=== PATIENT | female | born 1990 | race Caucasian/White ===

== ENCOUNTER 2022-10-22 15:56 | Inpatient (IN) ==
[2022-10-22] MEDS ORDERED: OXYTOCIN 30 UNITS/500 ML BAG IV PRN ×2 (16:13→21:25)
[2022-10-22] MEDS ORDERED: LIDOCAINE 1% LOCAL 20 ML VIAL INFIL PRN (16:13)
[2022-10-22] MEDS ORDERED: LACTATED RINGER'S 1,000 ML IV PRN (16:13)
[2022-10-22] MEDS ORDERED: fentaNYL citrate PF 100 MCG/2 ML VIAL ONE (16:22)
[2022-10-22] MEDS ORDERED: ePHEDrine sulfate 50 MG/ML AMP ONE (16:22)
[2022-10-22] MEDS ORDERED: SODIUM CHLORIDE 0.9% PF INJ 10 ML VIAL ONE (16:22)
[2022-10-22] MEDS ORDERED: BUPIVACAINE 0.25% PF 30 ML VIAL ONE (16:22)
[2022-10-22] MEDS ORDERED: fentaNYL 2MCG/ML ROPIVACAINE 1.25MG/ML 100 ML BAG EPI ONE (16:23)
[2022-10-22] MEDS ORDERED: LIDOCAINE 2%/EPINEPHRINE 1:200,000 20 ML PF ONE (16:23)
[2022-10-22] MEDS ORDERED: PENICILLIN G POTASSIUM 6 MU in DEXTROSE 5% 250 ML IV ONE (16:30)
--- NOTE | 2022-10-22 16:41 | History & Physical Report ---
Date of Service October 22, 2022 Assessment & Plan (1) Normal labor: (2) Carrier of group B Streptococcus: Plan admit, iv, labs. pcn for gbs. considering epidural. Admission and Anticipated Discharge Date Admission Date: October 22, 2022 History of Present Illness Chief Complaint: labor Primary Care Provider: Glneda Nevarez MD 32yo at 40+wks ega presents to L&D with labor. Contractions began this morning but then became more regular and patient prese nted for cx check after calling. No rom, no vb. +FM. Cx check per nurse 6cm. PNC significant for circumvallate placenta vs MCI, gbs + PNL rhpos, ri, gbs pos OBH: x 2 GYNH: nl paps no stds Allergies Allergy/AdvReac Type Severity Reaction Status Date / Time No Known Allergies Allergy Verified 10/16/22 14:53 Home Medications Medication Instructions Recorded Confirmed Type prenat.vits,oscar,azm-dowr-[id number] 1 tab PO DAILY 03/06/22 10/22/22 History breast pump #1 ea 08/29/22 10/16/22 Rx ferrous sulfate 325 mg (65 mg 325 mg PO DAILY 10/22/22 10/22/22 History iron) tablet (Iron (ferrous sulfate)) Patient History Medical History (Updated 10/22/22 @ 16:46 by Kala Nevarez MD, FACOG) Abnormal uterine bleeding (AUB) Abnormal uterine bleeding (AUB) Endometrial polyp History of chicken pox History of COVID-18 Jun 2021, home test > mild cold symptoms > re-test at home approx 1 week ago was negative Migraine Surgical History History of colonoscopy History of colposcopy 06/2019, ? pap disparate info. History of esophagogastroduodenoscopy (EGD) Hx of cholecystectomy Hx of surgical procedure liposuction to abdomen S/P dilatation and curettage Status post hysteroscopic polypectomy [place] teeth extracted Family History Aunt Breast cancer, Onset Age: 42 Grandfather (Maternal) Colorectal cancer, Onset Age: 62 Grandmother (Maternal) No problems noted. Grandmother (Paternal) Ovarian cancer, Onset Age: 70 Aunt Breast cancer, Onset Age: 50 Social History (Updated 03/06/22 @ 10:02 by Amada Darden) Smoking Status: Never smoker Second Hand Exposure: No; Do You Dip or Chew Tobacco: No; Hx Alcohol Use: No Hx Substance Use: No Preferred Language: Lithuanian Communication Ability: Effective Visual Impairment: No Limitations [employer] Senior Manager Required: No Beliefs That Will Affect Care: None marital status: marital status details: Ion Flores (38) [phone] Current Living Situation: Family Current Living Situation Comment: and 2 children current occupational status: employed current occupation: [employer] Other Information That Helps Us Care for You: No Feels Safe at Home: Yes Safety Concerns: Feels Safe At This Time Assistive Devices: None Review of Systems as per Subjective / HPI Physical Exam Constitutional: WD/WN, vitals as above Respiratory: normal respiratory effort, lungs clear to auscultation Cardiovascular: Rate/Rhythm: regular rate and regular rhythm Gastrointestinal (Abdomen): soft gravid nt efw 7-8# Musculoskeletal: no edema nontender calves Neurologic: grossly normal Psychiatric: A+Ox3, euthymic affect Genitourinary: Manual OB Exam: + cervical dilation (per nurse) 6 cm OB Exam Monitor Tracing: + external FHT monitor used, + external uterine monitor used (q2-3), + category I and + normal FHT variability Results & Data Vital Signs (Past 12 Hours) Vital Signs Temp Pulse Resp BP Pulse Ox 10/22/22 16:38 71 98 10/22/22 16:33 86 98 10/22/22 16:28 79 98 10/22/22 16:10 86 138/86 10/22/22 16:21 98.6 F 86 20 138/86 Code Status & VTE Plan VTE Prophylaxis Plan VTE Prophylaxis will be ordered: Yes Coding Level of Care Code None Diagnoses Normal labor O80; Z37.9 Carrier of group B Streptococcus Z22.330
[2022-10-22 16:42] LABS: Hemoglobin 11.1 g/dl (12.0-16.0); Mean Corpuscular Hemoglobin 27.1 pg (25.0-34.0); Mean Corpuscular Hgb Conc 32.6 g/dL (32.0-36.0); Mean Corpuscular Volume 82.9 fL (80.0-100.0); Mean Platelet Volume 11.1 fL (9.4-12.4); Platelet Count 213 K/uL (130-400); RDW Coefficient of Variation 13.6 % (11.5-14.5); RDW Standard Deviation 40.6 fL (36.4-46.3)
--- NOTE | 2022-10-22 16:50 | Anesthesiology Consultation ---
Date of Service October 22, 2022 Assessment & Plan Chart Review Chart Review: Acceptable Risk for Surgery, Patient NOT seen in Pre Admission Testing and Acceptable Risk for Labor Epidural Consults Requested none ASA ASA2 Proposed Anesthesia Anesthesia Type: Labor Epidural and CSE History Height/Weight Height: 5 ft 5 in Weight: 85.275 kg Allergies Allergy/AdvReac Type Severity Reaction Status Date / Time No Known Allergies Allergy Verified 10/16/22 14:53 Medications Home Medications Medication Instructions Recorded Confirmed Last Taken prenat.vits,oscar,ums-gppp-jlwtk 1 tab PO DAILY 03/06/22 10/22/22 10/22/22 breast pump #1 ea 08/29/22 10/16/22 Unknown ferrous sulfate 325 mg (65 mg 325 mg PO DAILY 10/22/22 10/22/22 10/22/22 iron) tablet (Iron (ferrous sulfate)) Past Medical History Medical History Abnormal uterine bleeding (AUB) Abnormal uterine bleeding (AUB) Endometrial polyp History of chicken pox History of COVID-18 Jun 2021, home test > mild cold symptoms > re-test at home approx 1 week ago was negative Migraine Exercise / Class Metabolic Activity II 4-5 Yardwork/Stairs/Walk up hill Past Family History Family History Aunt Breast cancer, Onset Age: 42 maternal Grandfather (Maternal) Colorectal cancer, Onset Age: 62 Grandmother (Maternal) No problems noted. Grandmother (Paternal) Ovarian cancer, Onset Age: 70 Aunt Breast cancer, Onset Age: 50 maternal , recurred age 60 Past Surgical History Surgical History History of colonoscopy History of colposcopy 06/2019, ? pap disparate info. History of esophagogastroduodenoscopy (EGD) Hx of cholecystectomy Hx of surgical procedure liposuction to abdomen S/P dilatation and curettage Status post hysteroscopic polypectomy [place] teeth extracted Past Anesthesia History No Hx of Anesthesia Complications and No Family Hx of Anesthesia Complications History of PONV No Hx of PONV and No Hx of Motion Sickness Social History Smoking Status: Never smoker Do You Dip or Chew Tobacco: No Hx Alcohol Use: No Hx Substance Use: No substance use type: does not use Physical Exam Vital Signs Last Vital Signs Temp 37.0 C 10/22/22 16:21 Pulse 79 10/22/22 16:43 Resp 20 10/22/22 16:21 BP 140/76 10/22/22 16:42 Pulse Ox 98 10/22/22 16:43 Testing Laboratory Results 10/22/22 16:25
[2022-10-22] MEDS ORDERED: NALOXONE HCL 0.4 MG/1 ML VIAL/CARP IV PRN (17:20)
[2022-10-22] MEDS ORDERED: ROPIVACAINE 0.5% PF 5 MG/ML 20 ML VIAL EPI PRN (17:20)
[2022-10-22] MEDS ORDERED: BUPIVACAINE 0.25% PF 30 ML VIAL EPI STA (17:20)
[2022-10-22] MEDS ORDERED: diphenhydrAMINE 50 MG/ML VIAL IV PRN (17:20)
[2022-10-22] MEDS ORDERED: LIDOCAINE 2% MPF LOCAL 5 ML VIAL EPI PRN (17:20)
[2022-10-22] MEDS ORDERED: ONDANSETRON INJ 2 MG/ML 2 ML VIAL IV PRN (17:20)
[2022-10-22] MEDS ORDERED: SODIUM CHLORIDE 0.9% PF INJ 10 ML VIAL EPI STA (17:20)
[2022-10-22] MEDS ORDERED: fentaNYL citrate PF 100 MCG/2 ML VIAL EPI PRN (17:20)
[2022-10-22] MEDS ORDERED: fentaNYL citrate PF 100 MCG/2 ML VIAL EPI STA (17:20)
[2022-10-22] MEDS ORDERED: PROMETHAZINE HCL 25 MG in SODIUM CHLORIDE 0.9% 50 ML IV PRN (17:20)
[2022-10-22] MEDS ORDERED: BUPIVACAINE 0.25% PF 30 ML VIAL EPI PRN (17:20)
[2022-10-22] MEDS ORDERED: fentaNYL 2MCG/ML ROPIVACAINE 1.25MG/ML 100 ML BAG EPI PRN (17:20)
[2022-10-22] MEDS ORDERED: LIDOCAINE 2%/EPINEPHRINE 1:200,000 20 ML PF EPI STA (17:20)
[2022-10-22] MEDS ORDERED: ePHEDrine sulfate 50 MG/ML AMP IV PRN (17:20)
[2022-10-22] MEDS ORDERED: NALOXONE HCL 1 MG in SODIUM CHLORIDE 0.9% 1000ML 1,000 ML IV PRN (17:20)
[2022-10-22] MEDS ORDERED: SODIUM CHLORIDE 0.9% PF INJ 10 ML VIAL EPI PRN (17:20)
[2022-10-22] MEDS ORDERED: NALBUPHINE HCL INJ 10 MG/ML AMP IV PRN (17:20)
--- NOTE | 2022-10-22 19:34 | Labor Progress Brief Note ---
Date of Service October 22, 2022 Subjective comfortable with epidural. noted clear fluid srom. Assessment & Plan (1) Normal labor: (2) Carrier of group B Streptococcus: Plan good cx change. anticip soon. c/w pcn for gbs status. fhts categ 1. Admission and Anticipated Discharge Date Admission Date: October 22, 2022 Physical Exam Constitutional: WD/WN, vitals as above Genitourinary: Manual OB Exam: + cervical dilation 9 cm, + cervical effacement 90% and + station + 1 OB Exam Monitor Tracing: + external FHT monitor used, + external uterine monitor used (q2-3), + category I and + normal FHT variability Results & Data Vital Signs (Past 12 Hours) Vital Signs Temp Pulse Resp BP Pulse Ox 10/22/22 19:30 61 99 10/22/22 19:25 82 98 10/22/22 19:23 85 131/83 10/22/22 19:20 66 98 10/22/22 19:15 68 99 10/22/22 19:10 99 10/22/22 19:10 70 10/22/22 19:10 70 129/80 10/22/22 19:05 69 99 10/22/22 19:00 80 97 10/22/22 18:55 65 99 10/22/22 18:52 54 L 122/81 10/22/22 18:50 63 100 10/22/22 18:48 55 L 119/80 10/22/22 18:45 72 98 10/22/22 18:43 63 134/76 10/22/22 18:40 64 99 10/22/22 18:38 75 128/77 10/22/22 18:35 77 95 10/22/22 18:36 77 91 10/22/22 18:30 65 98 10/22/22 18:28 56 L 107/56 L 10/22/22 18:25 53 L 98 10/22/22 18:22 60 105/55 L 10/22/22 18:20 58 L 98 10/22/22 18:19 55 L 110/57 L 10/22/22 18:15 54 L 97 10/22/22 18:14 57 L 111/53 L 10/22/22 18:10 57 L 98 10/22/22 18:09 74 101/55 L 10/22/22 18:05 58 L 97 10/22/22 18:03 59 L 102/55 L 10/22/22 18:00 61 98 10/22/22 17:58 62 109/57 L 10/22/22 17:55 61 106/56 L 98 10/22/22 17:50 63 98 10/22/22 17:47 61 113/52 L 10/22/22 17:45 69 98 10/22/22 17:43 65 122/56 L 10/22/22 17:40 81 98 10/22/22 17:37 68 116/57 L 10/22/22 17:35 65 97 10/22/22 17:34 68 102/52 L 10/22/22 17:31 75 117/55 L 10/22/22 17:30 68 97 10/22/22 17:29 68 118/58 L 10/22/22 17:28 75 121/57 L 10/22/22 17:25 87 109/63 98 10/22/22 17:23 76 111/57 L 10/22/22 17:21 72 110/54 L 10/22/22 17:20 83 113/65 97 10/22/22 17:15 91 H 98 10/22/22 17:13 71 141/75 H 10/22/22 17:11 64 146/88 H 10/22/22 17:10 99 10/22/22 17:10 60 10/22/22 17:10 73 143/88 H 10/22/22 17:08 84 153/97 H 10/22/22 17:05 78 99 10/22/22 16:53 68 97 10/22/22 16:48 79 99 10/22/22 16:43 79 98 10/22/22 16:42 70 140/76 10/22/22 16:38 71 98 10/22/22 16:33 86 98 10/22/22 16:28 79 98 10/22/22 16:10 86 138/86 10/22/22 16:21 98.6 F 86 20 138/86 Coding Level of Care Code None Diagnoses Normal labor O80; Z37.9 Carrier of group B Streptococcus Z22.330
[2022-10-22] MEDS ORDERED: PENICILLIN G POTASSIUM 3 MU in DEXTROSE 5% 100 ML IV PRN (19:41)
--- NOTE | 2022-10-22 20:34 | Delivery Summary ---
Vaginal Delivery Summary Date of Service October 22, 2022 Vaginal Delivery Summary and 2nd Degree LAC The patient dilated to complete and pushed to deliver a viable female infant Apgars 8 and 9 via over small 2nd degree perineal laceration. Mouth and nose bulb suctioned at perineum. Shoulders and body delivered with ease. Infant was vigorous and crying at . Cord clamped at 30 seconds of life and infant to maternal abdomen where the cord was then doubly clamped and cut. Placenta delivered spontaneously and intact, three-vessel cord--marginal cord insertion noted. Hemostasis achieved with dilute pitocin and uterine massage and drainage of the bladder for approximately 300 cc under sterile conditions. Laceration repaired in typical fashion with 3-0 vicryl. Cervix and sulci intact. EBL 300 cc. Mother and baby stable in recovery. [facility] [place] Delivery Type Details: and 2nd Degree LAC
--- NOTE | 2022-10-22 21:07 | Anesthesia Procedure Note ---
Date of Service October 22, 2022 Anesthesia Post Epidural Note Vital Signs Vital Signs: Temp Pulse Resp BP Pulse Ox 36.8 C 148 H 18 119/74 99 10/22/22 19:10 10/22/22 20:54 10/22/22 19:10 10/22/22 20:54 10/22/22 20:30 Pain Intensity Lower Medial Abdomen: Pain Intensity: 0 Notes Mental Status: alert / awake / arousable and participated in evaluation Nausea / Vomiting: adequately controlled Pain: adequately controlled Airway Patency, RR, SpO2: stable & adequate BP & HR: stable & adequate Hydration State: stable & adequate Neuraxial Anesthesia: was administered and sensory block is resolving Anesthetic Complications: no major complications apparent and Pt Satisfied with anesthetic care Epidural: Removed without complications and With tip intact
[2022-10-22] MEDS ORDERED: ACETAMINOPHEN 325 MG TAB PO PRN (21:25)
[2022-10-22] MEDS ORDERED: OXYTOCIN 20 UNITS in LACTATED RINGER'S 1,000 ML IV SCH (21:25)
[2022-10-22] MEDS ORDERED: HYDROCORTISONE ACETATE 25 MG SUPP PR PRN (21:25)
[2022-10-22] MEDS ORDERED: oxyCODONE/ACETAMINOPHEN 5mg/325mg TAB PO PRN (21:25)
[2022-10-22] MEDS ORDERED: BENZOCAINE 20% AER SPR 82.5 GM CAN EXT PRN (21:25)
[2022-10-22] MEDS ORDERED: bisacodyL 10 MG SUPP PR PRN (21:25)
[2022-10-22] MEDS: DOCUSATE SODIUM 100 MG CAP PO SCH (23:17)
[2022-10-23] MEDS: IBUPROFEN 600 MG TAB PO PRN ×3 (02:11→17:39)
--- NOTE | 2022-10-23 06:53 | Obstetrical Progress Note ---
Date of Service <Joaquin Antonio DO - Last Filed: 10/23/22 06:55> October 23, 2022 Assessment & Plan <Joaquin Antonio DO - Last Filed: 10/23/22 06:55> (1) Normal labor: (2) Encounter for care and examination after delivery: Plan - Feels well today. Eating well, voiding well, ambulating well. - Pain well controlled with ibuprofen 600mg Q4H PRN - Routine care -- OOB, ambulation, diet progression as tolerated - After discharge will have 6 week follow-up with Dr. Nevarez. - Will D/C after 24 hours post delivery. Day #:: 1 <Kala Nevarez MD, FACOG - Last Filed: 10/23/22 06:57> (1) Normal labor: (2) Encounter for care and examination after delivery: Subjective <Joaquin Antonio DO - Last Filed: 10/23/22 06:55> Ambulation: ambulating normally Voiding: no voiding problems Passing Gas:: Yes Diet Tolerance:: regular diet Lochia:: Small Feeding Type:: breast feeding Current Pain Level(1-10): 2 Review of Systems Denies fever, chills, sweats Denies shortness of breath, difficulty breathing, chest pain, palpitations, chest pressure. Denies breast pain. Denies dysuria. Denies headache or changes in vision. Physical Exam <Joaquin Antonio DO - Last Filed: 10/23/22 06:55> General: Alert, oriented. No acute distress. Cardiac: Regular rate and rhythm, no murmurs/rubs/gallops. Respiratory: Clear to auscultation bilaterally a/p, no wheezes/rales/rhonchi. No increased work of breathing. Symmetrical chest rise. No respiratory distress. Abdomen: Soft, nontender, nondistended. Bowel sounds present. Uterus: Uterine fundus firm, palpable 1 cm below umbilicus. Lower Extremities: No lower extremity edema or swelling. No deep calf pain. Davin's negative bilaterally. Results & Data <Joaquin Antonio DO - Last Filed: 10/23/22 06:55> Vital Signs (Past 12 Hours) Vital Signs Temp Pulse Pulse Resp BP BP Pulse Ox 10/23/22 04:10 36.5 C 61 16 125/77 98 10/22/22 22:50 36.5 C 76 17 147/74 H 98 10/22/22 22:39 67 126/60 10/22/22 22:24 72 140/75 10/22/22 21:38 58 L 126/80 10/22/22 21:23 52 L 121/72 10/22/22 21:08 58 L 125/75 10/22/22 19:10 18 10/22/22 19:10 36.8 C 18 10/22/22 20:54 148 H 119/74 10/22/22 20:39 56 L 133/102 H 10/22/22 20:33 58 L 137/98 10/22/22 20:30 76 99 10/22/22 20:25 59 L 99 10/22/22 20:20 70 99 10/22/22 20:15 93 H 98 10/22/22 20:11 82 111/83 10/22/22 20:10 60 100 10/22/22 20:05 55 L 99 10/22/22 20:00 61 99 10/22/22 19:55 68 123/62 98 10/22/22 19:50 99 10/22/22 19:50 74 10/22/22 19:50 69 93 10/22/22 19:45 56 L 98 10/22/22 19:40 99 10/22/22 19:40 57 L 10/22/22 19:40 63 136/60 10/22/22 19:35 54 L 98 10/22/22 19:30 61 99 10/22/22 19:25 82 98 10/22/22 19:23 85 131/83 10/22/22 19:20 66 98 10/22/22 19:15 68 99 10/22/22 19:10 99 10/22/22 19:10 70 10/22/22 19:10 70 129/80 10/22/22 19:05 69 99 10/22/22 19:00 80 97 10/22/22 18:55 65 99 O2 Del Method 10/23/22 04:10 Room Air 10/22/22 22:50 Room Air 10/22/22 22:39 10/22/22 22:24 10/22/22 21:38 10/22/22 21:23 10/22/22 21:08 10/22/22 19:10 10/22/22 19:10 10/22/22 20:54 10/22/22 20:39 10/22/22 20:33 10/22/22 20:30 10/22/22 20:25 10/22/22 20:20 10/22/22 20:15 10/22/22 20:11 10/22/22 20:10 10/22/22 20:05 10/22/22 20:00 10/22/22 19:55 10/22/22 19:50 10/22/22 19:50 10/22/22 19:50 10/22/22 19:45 10/22/22 19:40 10/22/22 19:40 10/22/22 19:40 10/22/22 19:35 10/22/22 19:30 10/22/22 19:25 10/22/22 19:23 10/22/22 19:20 10/22/22 19:15 10/22/22 19:10 10/22/22 19:10 10/22/22 19:10 10/22/22 19:05 10/22/22 19:00 10/22/22 18:55 <Kala Nevarez MD, FACOG - Last Filed: 10/23/22 06:57> Co-Signing Physician Notes Resident Physician Supervision Note: I was present with Dr. Antonio during the history and exam. I discussed the case with the resident and agree with the findings and plan as documented in the note. Any exceptions or clarifications are listed here: stable doing well, eating, voiding ambulating, breast feeding. abd soft ff 1 down nt ext nt calves. no edema. ppd#1 s/p , does want to go home later today if possible. instructions reviewed, f/u 6wks pp check. breast/rhpos/ri. Documented By: Klaa Nevarez MD, FACOG Resident Activity Tracking <Joaquin Antonio DO - Last Filed: 10/23/22 06:55> Resident Involvement: Resident Care Provided Care Provided: OB Delivery
[2022-10-23] MEDS ORDERED: PRENATAL VITAMIN 1 TAB PO SCH (08:00)
[2022-10-23] MEDS: DOCUSATE SODIUM 100 MG CAP PO SCH (08:28)
[2022-10-23] MEDS ORDERED: DIPHTHERIA/TETANUS/PERTUSSIS Vaccine (Tdap, Age 7+yrs) 0.5mL SYR/VL IM ONE (09:00)
== END 2022-10-23 21:20 | disposition home or self-care (01) | DRG 807 ==
LOC: OPB 15:56 → 4S1 15:57 → 4E2 23:19